=== PATIENT | female | born 1985 ===

== ENCOUNTER 2017-02-25 16:30 | Emergency (ER) | payer OTHER ==
[2017-02-25 17:20] LABS: SQUAMOUS EPITHIAL 1 /hpf (0-5); URINE BACTERIA RARE (<OCC); URINE BILIRUBIN NEGATIVE (NEGATIVE); URINE BLOOD NEGATIVE (NEGATIVE); URINE CLARITY Clear (Clear); URINE COLOR Straw (YELLOW); URINE GLUCOSE (UA) NORMAL (Normal); URINE LEUKOCYTE ESTERASE NEG Leu/uL (Negative); URINE NITRATE NEGATIVE (NEGATIVE); URINE PROTEIN NEGATIVE (NEGATIVE); URINE UROBILINOGEN NORMAL mg/dL (0.2-1.0)
--- NOTE | 2017-02-25 18:17 | OBHP ---
Datetime: 02/25/2017 16:58 IP Adm Impression: No Active Labor IP Admit Plan: Discharge home Admit Comment, IP Provider: CC: Left lower abdominal discomfort and back discomfort HPI: Patient is a 31 year old at 22 weeks of gestation with an ARNEL of 07/09/16 as per patie nt; as per first trimester documentation (ARNEL is 08/17/17). Patient presents to [facility] with a 10/10 left lower abdominal pain that started this morning, which is exacerbated by cough or sneezing. During the encounter, patient states that she is feeling better with a pain level of 4/10. In addition, patient also had complaints of 4/10 intermittent lower back pain without any radiation. Patient denies fever , chills, nausea, vomiting, dysuria, vaginal bleeding, leakage of fluid. Patient endorses movem ent. pt reports constiatpon last BM 4 days ago Intrapartum issues: Denies OB Hx: G1: Male , , 8lbs, no complications, 2005 G2: Female infant, (indicated weight), 9lbs, no complications, 2011 G3: Current, twins Rn Mds Coordinator Hx: TRIAD: 14/3-5days/ regular Menarche: 13 Hx of STDs: Denies Hx of fibroids or ovarian cyst: Denies PMHx: Denies PSHx: (2011) FHx: Father ( Diabetes) Meds: vitamins Allergies: NKDA Social Hx: Lives with and two children, unemployed. Denies current or former tobacco and i llicit drug use and admits to social ETOH intake before VSS PE: See above A/P: 31 year old at 22 weeks of gestation who presents with left lower abdominal pain and intermittent back pain 1. Stable, Afebrile 2. EFM, assess of reassurance 3. UA : Urine LE and nitrate ( Negative), normal 4. Advised to use OTC stool softner and prune juice 5. Advised continous hydration 7. Pre-term labor precautions given 8. Discharge patient home 9. Plans discussed with attending Elan Haney DO, PGY-1 agree with above pt seen and examined VE long/closed/psoeioersn no uterine tendners, no cerviacl tnender negative flank pain P1 with di/di twins at 20.6 wks with matnerl and reasusing well beng -tayoenol prn denis -stool softner , pruje juice -lower back brace prn back pain -f/u [place] Extremities - PN: Normal Abdomen - PN: Normal Lungs - PN: Normal Heart - PN: Normal HEENT - PN: Normal General - PN: Normal Comments, ACOG Physical Exam: Gen: NAD Cardio: RRR, normal S1, S2 Pulm: CTA bilaterally Abd: Soft, gravid and non-tender Ext: No edema, no cyanosis and no clubbing Bedside Ultrasound: - Twin A FHR: 162 - Twin B FHR: 171 EFM: TOCO: None SVE: Closed, 0% and posterior (Annotations: Data stored by CPN on behalf of user) IP Chief Complaint: Maternal discomfort
--- NOTE | 2017-02-25 18:19 | OBDCSUM ---
Datetime: 02/25/2017 17:40 Discharged to, Provider: Home Follow up at, Provider: Clinic Disch Instr Diet: Regular Discharge Instructions, Provider: Routine instructions given Discharge Time: 02/25/2017 17:40 Follow up in weeks, Provider: Alda 02/27/18 Disch Referrals: None Discharge Comment, Provider: eddie home stool softenr f/u clinci 1 week precauiton given
[2017-02-25 21:52] VITALS: BP 116/57; PULSE 121
== END 2017-02-25 17:52 | disposition home or self-care (01) ==
LOC: C.EROB 16:30
DX: O26.892 Other specified pregnancy related conditions, second trimester (principal); R10.32 Left lower quadrant pain; M54.9 Dorsalgia, unspecified; Z3A.22 22 weeks gestation of pregnancy